=== PATIENT | male | born 1955 ===

== ENCOUNTER 2020-05-15 01:50 | Emergency (ER) | payer OTHER ==
[2020-05-15 02:20] LABS: Protime INR 1.11
[2020-05-15 02:25] LABS: Absolute Lymphocytes (CBC) 1.7 K/uL (0.7-4.9); Basophils % 1.2 % (0-1.3); Hematocrit 45.1 % (39.6-49.0); Lymphocytes % 30.1 % (15.3-44.8); RBC Red Blood Cell Count 5.17 M/uL (4.33-5.43)
[2020-05-15] MEDS ORDERED: ONDANSETRON 4 MG/2 ML VIAL ONE (02:47)
[2020-05-15] MEDS ORDERED: MORPHINE 4 MG/ML SYR ONE (02:47)
[2020-05-15 02:50] LABS: Albumin 4.1 g/dL (3.4-5.0); Bilirubin Direct 0.2 mg/dL (0-0.2); Bilirubin Total 0.5 mg/dL (0.2-1.0); Potassium 3.9 mmol/L (3.5-5.1); Protein, Total 8.4 g/dL (6.4-8.2); Troponin (Emerg Dept Use Only) 0.02 ng/mL (0.0-0.045)
[2020-05-15] MEDS ORDERED: FENTANYL CITR 100 MCG/2 ML ONE (03:33)
[2020-05-15 03:58] LABS: Barbiturates NEGATIVE (NEGATIVE); Benzodiazepines NEGATIVE (NEGATIVE); Cocaine POSITIVE (NEGATIVE); METHAMPHETAM NEGATIVE (NEGATIVE); Methadone NEGATIVE (NEGATIVE); Opiates NEGATIVE (NEGATIVE); Phencyclidine NEGATIVE (NEGATIVE); THC Cannibis POSITIVE (NEGATIVE)
[2020-05-15] MEDS ORDERED: LIDOCAINE VISCOUS 2% SOLN 15 ML UDC ONE (04:52)
[2020-05-15] MEDS ORDERED: MAGNE/ALUM HYDROXD 30 ML UCUP ONE (04:52)
--- NOTE | 2020-05-15 05:34 | ER ---
Nurse's Notes [facility] Name: Darrin West Age: 64 yrs Sex: Male : 1955 Arrival Date: 05/15/2020 Time: 01:56 Bed 8 Private MD: Diagnosis: Abdominal tenderness;Other chest pain;Cocaine abuse;Cannabis abuse;Gastritis, unspecified, without bleeding Presentation: 05/15 01:50 Chief complaint: EMS states: patient complaint of chest pain started around 9PM rr5 radiating to back. 01:50 Coronavirus screen: Client denies travel out of the [place] in the last 14 days. At this rr5 time, the client does not indicate any symptoms associated with coronavirus-19. Ebola Screen: Patient negative for fever greater than or equal to 101.5 degrees Fahrenheit, and additional compatible Ebola Virus Disease symptoms Patient denies exposure to infectious person. Patient denies travel to an Ebola-affected area in the 21 days before illness onset. Initial Sepsis Screen: Does the patient meet any 2 criteria? No. Patient's initial sepsis screen is negative. Does the patient have a suspected source of infection? No. Patient's initial sepsis screen is negative. Risk Assessment: Do you want to hurt yourself or someone else? Patient reports no desire to harm self or others. Onset of symptoms was May 14, 2020. Care prior to arrival: IV initiated. 20 GA, in the right antecubital area, Glucose check: 190. 01:50 Method Of Arrival: EMS: central EMS rr5 01:50 Acuity: BRANDI 3 rr5 Historical: - Allergies: 02:00 Ibuprofen; rr5 - Home Meds: 02:00 cancer medications [Active]; Metformin Oral [Active]; clonidine HCl 0.2 mg Oral tab rr5 [Active]; dilaudid [Active]; - PMHx: 02:00 lung cancer; brain tumor; kidney cancer; rr5 - PSHx: 02:00 foot surgery; leg surgery; back surgery; rr5 - Immunization history:: Adult Immunizations up to date. - Social history:: Smoking status: Patient reports the use of cigarette tobacco products, smokes one-half pack cigarettes per day, Patient/guardian denies using alcohol, street drugs. Screenin:08 Abuse screen: Denies threats or abuse. Denies injuries from another. Nutritional rr5 screening: No deficits noted. Tuberculosis screening: No symptoms or risk factors identified. Fall Risk IV access (20 points). Total Campbell Fall Scale indicates No Risk (0-24 pts). Assessment: 02:00 General: Appears in no apparent distress. uncomfortable, Behavior is calm, cooperative, rr5 appropriate for age. 02:00 Pain: Complains of pain in chest Pain radiates to back Pain currently is 10 out of 10 rr5 on a pain scale. Quality of pain is described as aching, Pain began gradually, Is intermittent. Neuro: Level of Consciousness is awake, alert, obeys commands, Oriented to person, place, time. Cardiovascular: Reports chest pain, Capillary refill < 3 seconds Patient's skin is warm and dry. Respiratory: Airway is patent Respiratory effort is even, unlabored, Respiratory pattern is regular, symmetrical. GI: No signs and/or symptoms were reported involving the gastrointestinal system. : No signs and/or symptoms were reported regarding the genitourinary system. EENT: No signs and/or symptoms were reported regarding the EENT system. Derm: Skin is intact, is healthy with good turgor, Skin temperature is warm. 02:25 Reassessment: pt reported chest pain, ERD notified of pain and elevated BP. pressure ll2 retaken 205/121. ERD notified. 03:18 Reassessment: Patient appears in no apparent distress at this time. complaints still rr5 having chest pain, ED provider aware with order made and carried out. 04:05 Reassessment: Patient appears in no apparent distress at this time. Patient is alert, rr5 oriented x 3, equal unlabored respirations, skin warm/dry/pink. came back from CT scan awaiting for result. 04:40 Reassessment: Patient appears in no apparent distress at this time. Patient is alert, rr5 oriented x 3, equal unlabored respirations, skin warm/dry/pink. repeat troponin sent, ED provider reassess the patient. 05:50 Reassessment: Patient appears in no apparent distress at this time. Patient is alert, rr5 oriented x 3, equal unlabored respirations, skin warm/dry/pink. ED provider spoke to patient and discussed the result. 06:04 Reassessment: discharge instruction given and explained without complaints made. rr5 Vital Signs: 01:50 BP 183 / 112; Pulse 100; Resp 19; Temp 98; Pulse Ox 99% ; Weight 81.19 kg; Height 5 ft. rr5 9 in. (175.26 cm); Pain 10/10; 02:45 BP 191 / 117; Pulse 76; Resp 17; Pulse Ox 100% ; rr5 03:14 BP 169 / 110; Pulse 90; Resp 16; Pulse Ox 99% ; rr5 04:05 BP 147 / 90; Pulse 95; Resp 18; Pulse Ox 99% ; rr5 05:00 BP 156 / 85; Pulse 85; Resp 14; Pulse Ox 98% ; rr5 06:04 BP 149 / 85; Pulse 90; Resp 16; Pulse Ox 99% ; rr5 01:50 Body Mass Index 26.43 (81.19 kg, 175.26 cm) rr5 ED Course: 01:56 Patient arrived in ED. ll2 01:58 Leno Evans MD is Attending Physician. tw4 01:59 Jaswinder Rodriguez RN is Primary Nurse. rr5 02:00 Maintain EMS IV. Dressing intact. Good blood return noted. Site clean \T\ dry. Gauge \T\ rr 5 site: G20 right AC. 02:00 Patient maintains SpO2 saturation greater than 95% on room air. rr5 02:04 Triage completed. rr5 02:07 Arm band placed on right wrist. EKG completed in triage. Results shown to MD. rr5 02:09 Patient has correct armband on for positive identification. Placed in gown. Bed in low rr5 position. Call light in reach. Side rails up X2. court recording monitor on. Pulse ox on. NIBP on. 02:29 XRAY Chest (1 view) In Process Unspecified. EDMS 04:12 CT Chest For PE Angio In Process Unspecified. EDMS 04:12 CT Abd/Pelvis - IV Contrast Only In Process Unspecified. EDMS 06:05 No provider procedures requiring assistance completed. IV discontinued, intact, rr5 bleeding controlled, No redness/swelling at site. Pressure dressing applied. Administered Medications: 02:40 Drug: Zofran (Ondansetron) 4 mg Route: IVP; Site: right antecubital; rr5 03:25 Follow up: Response: No adverse reaction rr5 02:42 Drug: morphine 4 mg {Note: rass 0.} Route: IVP; Site: right antecubital; rr5 03:25 Follow up: Response: No adverse reaction; Pain is unchanged, physician notified; RASS: rr5 Alert and Calm (0) 02:46 Drug: hydrALAZINE 10 mg Route: IV; Rate: bolus; Site: right antecubital; rr5 03:25 Follow up: Response: No adverse reaction; IV Status: Completed infusion rr5 03:24 Drug: fentaNYL (PF) 12.5 mcg {Note: rass 0.} Route: IVP; Site: right antecubital; rr5 04:20 Follow up: Response: No adverse reaction; RASS: Alert and Calm (0) rr5 04:49 Drug: GI Cocktail without - (Maalox Suspension 30 ml, Lidocaine Liquid 2 % 15 rr5 ml) Route: PO; 06:05 Follow up: Response: No adverse reaction rr5 06:00 Drug: Bentyl 20 mg Route: PO; rr5 06:06 Follow up: Response: Medication administered at discharge. rr5 Outcome: 05:33 Discharge ordered by . tw4 06:05 Discharged to home ambulatory. rr5 06:05 Condition: stable 06:05 Discharge instructions given to patient, Instructed on discharge instructions, follow up and referral plans. medication usage, Demonstrated understanding of instructions, follow-up care, medications, Prescriptions given X 2. 06:07 Patient left the ED. rr5 Signatures: Dispatcher [employer] Leno Marroquin MD MD tw4 Jaswinder Rodriguez, RN RN rr5 Norma Ricardo RN RN ll2
--- NOTE | 2020-05-15 05:34 | EDPHYS ---
Physician Documentation [facility] Name: Darrin West Age: 64 yrs Sex: Male : 1955 Arrival Date: 05/15/2020 Time: 01:56 Bed 8 Private MD: ED Physician Leno Evans HPI: 05/15 02:44 This 64 yrs old Black Male presents to ER via EMS with complaints of Chest Pain > 30 tw4 y/o. 02:44 The patient or guardian reports chest pain that is located primarily in the substernal tw4 area. Onset: today. The pain does not radiate. Associated signs and symptoms: The patient has no apparent associated signs or symptoms. The chest pain is described as dull. Duration: The patient or guardian reports a single episode. Modifying factors: The symptoms are alleviated by nothing. the symptoms are aggravated by nothing. Severity of pain: At its worst the pain was moderate in the emergency department the pain is unchanged. Historical: - Allergies: 02:00 Ibuprofen; rr5 - Home Meds: 02:00 cancer medications [Active]; Metformin Oral [Active]; clonidine HCl 0.2 mg Oral tab rr5 [Active]; dilaudid [Active]; - PMHx: 02:00 lung cancer; brain tumor; kidney cancer; rr5 - PSHx: 02:00 foot surgery; leg surgery; back surgery; rr5 - Immunization history:: Adult Immunizations up to date. - Social history:: Smoking status: Patient reports the use of cigarette tobacco products, smokes one-half pack cigarettes per day, Patient/guardian denies using alcohol, street drugs. ROS: 02:44 Constitutional: Negative for fever, chills, and weight loss, Eyes: Negative for injury, tw4 pain, redness, and discharge, Respiratory: Negative for shortness of breath, cough, wheezing, and pleuritic chest pain, Abdomen/GI: Negative for abdominal pain, nausea, vomiting, diarrhea, and constipation, Back: Negative for injury and pain, MS/Extremity: Negative for injury and deformity, Skin: Negative for injury, rash, and discoloration. 02:44 Cardiovascular: Positive for chest pain, Negative for chest pain, edema, paroxysmal nocturnal dyspnea. Exam: 02:44 Constitutional: This is a well developed, well nourished patient who is awake, alert, tw4 and in no acute distress. Head/Face: Normocephalic, atraumatic. Chest/axilla: Normal chest wall appearance and motion. Nontender with no deformity. No lesions are appreciated. Cardiovascular: Regular rate and rhythm with a normal S1 and S2. No gallops, murmurs, or rubs. Normal PMI, no JVD. No pulse deficits. Respiratory: Lungs have equal breath sounds bilaterally, clear to auscultation and percussion. No rales, rhonchi or wheezes noted. No increased work of breathing, no retractions or nasal flaring. Abdomen/GI: Soft, non-tender, with normal bowel sounds. No distension or tympany. No guarding or rebound. No evidence of tenderness throughout. Back: No spinal tenderness. No costovertebral tenderness. Full range of motion. MS/ Extremity: Pulses equal, no cyanosis. Neurovascular intact. Full, normal range of motion. Neuro: Awake and alert, GCS 15, oriented to person, place, time, and situation. Cranial nerves II-XII grossly intact. Motor strength 5/5 in all extremities. Sensory grossly intact. Cerebellar exam normal. Normal gait. Vital Signs: 01:50 BP 183 / 112; Pulse 100; Resp 19; Temp 98; Pulse Ox 99% ; Weight 81.19 kg; Height 5 ft. rr5 9 in. (175.26 cm); Pain 10/10; 02:45 BP 191 / 117; Pulse 76; Resp 17; Pulse Ox 100% ; rr5 03:14 BP 169 / 110; Pulse 90; Resp 16; Pulse Ox 99% ; rr5 04:05 BP 147 / 90; Pulse 95; Resp 18; Pulse Ox 99% ; rr5 05:00 BP 156 / 85; Pulse 85; Resp 14; Pulse Ox 98% ; rr5 06:04 BP 149 / 85; Pulse 90; Resp 16; Pulse Ox 99% ; rr5 01:50 Body Mass Index 26.43 (81.19 kg, 175.26 cm) rr5 MDM: 01:58 Patient medically screened. tw4 05:25 Differential diagnosis: anxiety, gastroesophageal reflux disease (GERD), pancreatitis, tw4 peptic ulcer disease, pulmonary embolus, stable angina. HEART Score: History: Moderately Suspicious (1), ECG: Non specific repolarization disturbance / LBTB / PM (1), Age: > 45 and < 65 years (1), Risk Factors: No Risk Factors Known (0), Troponin: < or = 1 x Normal Limit (0), Total Score = 3. Data reviewed: vital signs, nurses notes. Data reviewed: lab test result(s), cardiac enzymes, CBC, hepatic panel, radiologic studies, CT scan, plain films. Data interpreted: Pulse oximetry: Interpretation: normal. Counseling: I had a detailed discussion with the patient and/or guardian regarding: the historical points, exam findings, and any diagnostic results supporting the discharge/admit diagnosis, lab results, radiology results. 05/15 02:10 Order name: Basic Metabolic Panel; Complete Time: 02:51 tw4 05/15 02:51 Interpretation: Normal except: GLUC 109; BUN 5; GFR 72. 05/15 02:10 Order name: CBC with Diff; Complete Time: 02:51 4 05/15 02:59 Interpretation: Within normal limits. 4 05/15 02:10 Order name: LFT's; Complete Time: 02:51 4 05/15 02:51 Interpretation: Normal except: A/G 1.0; TP 8.4; GLOB 4.3. tw4 05/15 02:10 Order name: Magnesium; Complete Time: 02:51 4 05/15 02:59 Interpretation: Within normal limits: MG 2.0. tw05/15 02:10 Order name: NT PRO-BNP; Complete Time: 02:51 4 05/15 02:10 Order name: PT-INR; Complete Time: 02:51 4 05/15 02:59 Interpretation: Normal except: PT 13.1. tw05/15 02:10 Order name: Troponin (emerg Dept Use Only); Complete Time: 02:51 4 05/15 01:59 Order name: Cardiac monitoring; Complete Time: 01:59 2 05/15 02:00 Order name: CT Chest For PE Angio tw4 05/15 02:00 Order name: CT Abd/Pelvis - IV Contrast Only tw4 05/15 02:10 Order name: XRAY Chest (1 view) 4 05/15 02:10 Order name: EKG; Complete Time: 02:11 4 05/15 03:04 Order name: Urine Drug Screen; Complete Time: 04:10 4 05/15 04:10 Interpretation: Normal except: MOUNA POSITIVE; THC POSITIVE. tw4 05/15 04:34 Order name: Troponin (emerg Dept Use Only); Complete Time: 05:23 tw4 05/15 05:23 Interpretation: Within normal limits: TROPED 0.02. tw4 05/15 04:34 Order name: EKG; Complete Time: 04:35 tw4 05/15 01:59 Order name: EKG - Nurse/Tech; Complete Time: 59 ll2 05/15 01:59 Order name: IV Saline Lock; Complete Time: 59 ll2 05/15 01:59 Order name: Labs collected and sent; Complete Time: ll2 05/15 01:59 Order name: O2 Per Protocol; Complete Time: ll2 05/15 01:59 Order name: O2 Sat Monitoring; Complete Time: ll2 EC:44 Rate is 98 beats/min. Rhythm is regular. QRS Cannon is Normal. FL interval is normal. QRS tw4 interval is normal. QT interval is normal. No Q waves. T waves are Peaked. No ST changes noted. Clinical impression: NSR w/ Non-specific ST/T Changes. Interpreted by me. Reviewed by me. Administered Medications: 02:40 Drug: Zofran (Ondansetron) 4 mg Route: IVP; Site: right antecubital; rr5 03:25 Follow up: Response: No adverse reaction rr5 02:42 Drug: morphine 4 mg {Note: rass 0.} Route: IVP; Site: right antecubital; rr5 03:25 Follow up: Response: No adverse reaction; Pain is unchanged, physician notified; RASS: rr5 Alert and Calm (0) 02:46 Drug: hydrALAZINE 10 mg Route: IV; Rate: bolus; Site: right antecubital; rr5 03:25 Follow up: Response: No adverse reaction; IV Status: Completed infusion rr5 03:24 Drug: fentaNYL (PF) 12.5 mcg {Note: rass 0.} Route: IVP; Site: right antecubital; rr5 04:20 Follow up: Response: No adverse reaction; RASS: Alert and Calm (0) rr5 04:49 Drug: GI Cocktail without - (Maalox Suspension 30 ml, Lidocaine Liquid 2 % 15 rr5 ml) Route: PO; 06:05 Follow up: Response: No adverse reaction rr5 06:00 Drug: Bentyl 20 mg Route: PO; rr5 06:06 Follow up: Response: Medication administered at discharge. rr5 Disposition: 05/15/20 05:33 Discharged to Home. Impression: Abdominal tenderness, Other chest pain, Cocaine abuse, Cannabis abuse, Gastritis, unspecified, without bleeding. - Condition is Stable. - Discharge Instructions: Abdominal Pain, Adult, Nonspecific Chest Pain, Stimulant Use Disorder-Cocaine, Hypertension, Pain Without a Known Cause. - Prescriptions for Bentyl 20 mg Oral Tablet - take 1 tablet by ORAL route every 6 hours As needed; 20 tablet. Protonix 40 mg Oral Tablet - take 1 tablet by ORAL route once daily; 30 tablet. - Medication Reconciliation Form, Thank You Letter, Antibiotic Education, Prescription Opioid Use form. - Follow up: Private Physician; When: Upon discharge from the Emergency Department; Reason: Recheck today's complaints, Continuance of care, Re-evaluation by your physician. - Problem is new. - Symptoms have improved. Signatures: Dispatcher [employer] EDLeno Herrera MD MD tw4 Jaswinder Rodriguez RN RN rr5 Norma Ricardo, RN RN ll2 Corrections: (The following items were deleted from the chart) 05:34 05:33 05/15/2020 05:33 Discharged to Home. Impression: Abdominal tenderness; Other tw4 chest pain; Cocaine abuse; Cannabis abuse. Condition is Stable. Forms are Medication Reconciliation Form, Thank You Letter, Antibiotic Education, Prescription Opioid Use. Follow up: Private Physician; When: Upon discharge from the Emergency Department; Reason: Recheck today's complaints, Continuance of care, Re-evaluation by your physician. Problem is new. Symptoms have improved. tw4 06:07 05:34 05/15/2020 05:33 Discharged to Home. Impression: Abdominal tenderness; Other rr5 chest pain; Cocaine abuse; Cannabis abuse; Gastritis, unspecified, without bleeding. Condition is Stable. Discharge Instructions: Abdominal Pain, Adult, Nonspecific Chest Pain, Stimulant Use Disorder-Cocaine, Hypertension, Pain Without a Known Cause. Prescriptions for Bentyl 20 mg Oral Tablet - take 1 tablet by ORAL route every 6 hours As needed; 20 tablet, Protonix 40 mg Oral Tablet - take 1 tablet by ORAL route once daily; 30 tablet. and Forms are Medication Reconciliation Form, Thank You Letter, Antibiotic Education, Prescription Opioid Use. Follow up: Private Physician; When: Upon discharge from the Emergency Department; Reason: Recheck today's complaints, Continuance of care, Re-evaluation by your physician. Problem is new. Symptoms have improved. tw4
[2020-05-15] MEDS ORDERED: DICYCLOMINE HCL 10 MG CAP ONE (06:00)
[2020-05-15 06:13] VITALS: TEMP 98
[2020-05-15 06:21] VITALS: BP 149/85; O2SAT 99
--- NOTE | 2020-05-15 08:32 | RAD REPORT ---
EXAM DESCRIPTION: RAD - Chest Single View - 05/15/2020 2:29 am CLINICAL HISTORY: CHEST PAIN Chest pain. COMPARISON: Chest For Pe Angio dated 05/15/2020 FINDINGS: Portable technique limits examination quality. The lungs are grossly clear. The heart is normal in size. No displaced fractures. IMPRESSION: No acute intrathoracic process suspected.
--- NOTE | 2020-05-15 10:03 | RAD REPORT ---
EXAM DESCRIPTION: CT Abdomen and Pelvis With Intravenous Contrast CLINICAL HISTORY: The patient is 64 years old and is Male; ABD PAIN TECHNIQUE: Axial computed tomography images of the abdomen and pelvis with intravenous contrast. S agittal and coronal reformatted images were created and reviewed. This CT exam was performed using one or more of the following dose reduction techniques: automated exposure control, adjustment of t he mA and/or kV according to patient size, and/or use of iterative reconstruction technique. COMPARISON: No relevant prior studies available. FINDINGS: Lung bases: Unremarkable. No mass. No consolidation. ABDOMEN: Liver: Unremarkable. No mass. Gallbladder and bile ducts: Unremarkable. No calcified stones. No ductal dilation. Pancreas: No findings to suggest acute pancreatitis. No mass visualized. No ductal dilation. Spleen: Unremarkable. No splenomegaly. Adrenals: Unremarkable. No mass. Kidneys and ureters: Unremarkable. No solid mass. No hydronephrosis. Stomach and bowel: No bowel dilatation or obstruction. No bowel wall thickening. PELVIS: Appendix: The appendix is not visualized. No pericecal inflammation to suggest acute appendiciti s. Bladder: Unremarkable. No mass. Reproductive: Unremarkable as visualized. ABDOMEN and PELVIS: Intraperitoneal space: Unremarkable. No free air. No significant fluid collection. Bones/joints: Degenerative changes in the spine. No acute fracture. No dislocation. Soft tissues: Unremarkable. Vasculature: Unremarkable. No abdominal aortic aneurysm. Lymph nodes: No pathologically enlarged lymph nodes. IMPRESSION: No acute obstructive or inflammatory process identified. Electronically signed by: Dea Ivey MD 05/15/2020 4:22 AM CDT Due to temporary technical issues with the PACS/Fluency reporting system, reports are being signed by the in house radiologist without review as a courtesy to ensure prompt reporting. The interpreting r adiologist is fully responsible for the content of the report.
--- NOTE | 2020-05-15 10:05 | RAD REPORT ---
EXAM DESCRIPTION: CT Angiography Chest With Intravenous Contrast CLINICAL HISTORY: The patient is 64 years old and is Male; CHEST PAIN TECHNIQUE: Axial computed tomographic angiography images of the chest with intravenous contrast. S agittal and coronal reformatted images were created and reviewed. This CT exam was performed using one or more of the following dose reduction techniques: automated exposure control, adjustment of t he mA and/or kV according to patient size, and/or use of iterative reconstruction technique. MIP re constructed images were created and reviewed. COMPARISON: No relevant prior studies available. FINDINGS: Pulmonary arteries: No PE identified. Aorta: No acute findings. No thoracic aortic aneurysm. Lungs: No pulmonary consolidation or groundglass opacities. Pleural space: No pleural effusion or pneumothorax. Heart: Unremarkable. No cardiomegaly. No significant pericardial effusion. No evidence of RV dysfunction. Bones/joints: No acute fracture visualized. No dislocation. Soft tissues: Unremarkable. Lymph nodes: Unremarkable. No enlarged lymph nodes. Upper abdomen: Elevated right hemidiaphragm. IMPRESSION: 1. No PE identified. 2. No pulmonary consolidation or groundglass opacities. Electronically signed by: Dea Ivey MD 05/15/2020 4:29 AM CDT Due to temporary technical issues with the PACS/Fluency reporting system, reports are being signed by the in house radiologist without review as a courtesy to ensure prompt reporting. The interpreting r adiologist is fully responsible for the content of the report.
--- NOTE | 2020-05-17 11:16 | EKG ---
Test Date: 2020-05-15 Test Time: 05:28:01 [employer] Attacher: RR MEASUREMENT RESULTS: Intervals: Rate: 87 ID: [id number] QRSD: 96 QT: 388 QTc: 466 [place]: P: 82 ID: [id number] QRS: 84 T: 15 INTERPRETIVE STATEMENTS: Normal sinus rhythm Voltage criteria for left ventricular hypertrophy Cannot rule out Septal infarct, age undetermined Abnormal ECG Compared to ECG 05/15/2020 01:52:40 Myocardial infarct finding now present ST (T wave) deviation no longer present Possible ischemia no longer present Electronically Signed On 05-17-20 11:13:56 CDT by Zion Glover
--- NOTE | 2020-05-17 11:17 | EKG ---
Test Date: 2020-05-15 Test Time: 01:52:40 Rehab Nurse: RADHA MEASUREMENT RESULTS: Intervals: Rate: 98 TN: 190 QRSD: 88 QT: 358 QTc: 457 [place]: P: 72 TN: 190 QRS: 72 T: 18 INTERPRETIVE STATEMENTS: Normal sinus rhythm Possible Left atrial enlargement Left ventricular hypertrophy ST & T wave abnormality, consider inferior ischemia Abnormal ECG No previous ECG available for comparison Electronically Signed On 05-17-20 11:14:01 CDT by Zion Glover
== END 2020-05-15 06:07 | disposition home or self-care (01) ==
LOC: ER 01:50
DX: F12.10 Cannabis abuse, uncomplicated (principal); K29.70 Gastritis, unspecified, without bleeding; R10.819 Abdominal tenderness, unspecified site; F17.210 Nicotine dependence, cigarettes, uncomplicated; Z88.6 Allergy status to analgesic agent; Z85.118 Personal history of other malignant neoplasm of bronchus and lung; Z85.841 Personal history of malignant neoplasm of brain; Z85.528 Personal history of other malignant neoplasm of kidney
CPT/HCPCS: 96365; 93005 ×2; 85025; 80048; 36415; 83735; 85610; 80076; 80307 ×8; 84484 ×2; 83880; 71275; 74177; 71045; 96375; 99285; Q9967; J3010; J2405